=== PATIENT | male | born 1950 | race African-American/Black ===

== ENCOUNTER 2019-02-22 08:59 | Inpatient (IN) | payer MEDICARE ==
[2019-02-22] MEDS ORDERED: NORepinephrine 8MG/250 ML (PMX 250 ML (09:30)
[2019-02-22] MEDS ORDERED: MAGNESIUM HYDROXIDE 30ML CUP PO (10:30)
[2019-02-22] MEDS ORDERED: HYDROCODONE/APAP (5/325) TAB PO (10:30)
[2019-02-22] MEDS ORDERED: NITROGLYCERIN (SL) 0.4 MG TAB SL (10:30)
[2019-02-22] MEDS ORDERED: ALBUTEROL/IPRATROPIUM (NEB) 3 ML AMP HHN (10:30)
[2019-02-22] MEDS ORDERED: DOCUSATE SODIUM 100 MG CAP PO (10:30)
[2019-02-22] MEDS ORDERED: VANCOMYCIN IV PER PHARMACY XX (10:30)
[2019-02-22] MEDS ORDERED: PHENYLephrine 80 MG in DEXTROSE 5% 242 ML IV (10:30)
[2019-02-22] MEDS ORDERED: NORepinephrine 8MG/250 ML (PMX 250 ML IV (10:30)
[2019-02-22] MEDS ORDERED: morphine 2 MG INJ IV (10:30)
[2019-02-22] MEDS ORDERED: ACETAMINOPHEN 325 MG TAB PO (10:30)
[2019-02-22] MEDS ORDERED: NACL 0.9% 3 ML SYG IV (10:30)
[2019-02-22] MEDS: NORepinephrine 8MG/250 ML (PMX 250 ML IV (11:06)
[2019-02-22] MEDS ORDERED: GLUCOSE GEL 15 GRAM TUBE PO ×2 (11:30)
[2019-02-22] MEDS ORDERED: GLUCOSE GEL 15 GRAM TUBE BUCCAL (11:30)
[2019-02-22] MEDS ORDERED: GLUCAGON 1 MG INJ IM (11:30)
[2019-02-22] MEDS: DEXTROSE 50% 50 ML SYRINGE IV ×2 (12:11→17:42)
[2019-02-22] MEDS: CEFEPIME 2GM/50 ML (PMX) 50 ML IVPB (12:12)
[2019-02-22] MEDS: VANCOMYCIN 1.25 GM/NS 250 ML 250 ML IVPB (12:16)
[2019-02-22] MEDS: INSULIN ASPART [NOVOLOG] 3 ML PEN SC ×3 (12:18→20:22)
[2019-02-22] MEDS ORDERED: CEFEPIME 2GM/50 ML (PMX) 50 ML IVPB (14:00)
[2019-02-22] MEDS: LACTATED RINGER'S 1,000 ML IV (15:02)
[2019-02-22] MEDS: DEXTROSE 10% 1,000 ML IV (15:02)
[2019-02-22] MEDS: ATORVASTATIN 20 MG TAB GTB (20:19)
[2019-02-22] MEDS: NORepinephrine 32 MG in DEXTROSE 5% 218 ML IV (21:00)
[2019-02-22] MEDS: ONDANSETRON 4 MG INJ IV (21:07)
[2019-02-23] MEDS: PHENYLephrine 80 MG in DEXTROSE 5% 242 ML IV (00:15)
[2019-02-23] MEDS: SOD CHLORIDE 0.9% 500 ML IV (00:40)
[2019-02-23] MEDS: INSULIN ASPART [NOVOLOG] 3 ML PEN SC ×3 (01:00→09:00)
[2019-02-23] MEDS: LORAZEPAM 2 MG INJ IV (01:10)
[2019-02-23] MEDS: DEXTROSE 50% 50 ML SYRINGE IV (01:10)
[2019-02-23] MEDS: ALBUMIN HUMAN 25% 100 ML IV (01:11)
[2019-02-23] MEDS: ACCU-CHEK XX (01:17)
[2019-02-23] MEDS ORDERED: PROPOFOL 100 ML (01:55)
[2019-02-23] MEDS: PROPOFOL 100 ML IV (02:03)
[2019-02-23] MEDS: PANTOPRAZOLE 40 MG INJ IV (05:31)
[2019-02-23] MEDS ORDERED: NA BICARBONATE 8.4% 50 ML SYG (08:23)
[2019-02-23] MEDS: NA BICARBONATE 8.4% 50 ML SYG IV (08:27)
[2019-02-23] MEDS ORDERED: VASOPRESSIN 60 UNIT in DEXTROSE 5% 57 ML IV (08:30)
[2019-02-23] MEDS: MULTIVIT/CA CARB/B CMPLX/FA TAB GTB (09:00)
[2019-02-23] MEDS ORDERED: CEFEPIME 1GM/50 ML IVPB (12:00)
== END 2019-02-23 09:41 | disposition expired | DRG 871 ==
LOC: ICU 08:59
PROC: 5A1945Z Respiratory Ventilation, 24-96 Consecutive Hours (ICD-10-PCS; principal; 2019-02-22)
DX: A41.9 Sepsis, unspecified organism (principal); J69.0 Pneumonitis due to inhalation of food and vomit; N18.6 End stage renal disease; R53.2 Functional quadriplegia; R65.21 Severe sepsis with septic shock; G92 Toxic encephalopathy; J96.11 Chronic respiratory failure with hypoxia; I12.0 Hypertensive chronic kidney disease with stage 5 chronic kidney disease or end stage renal disease; Z99.11 Dependence on respirator [ventilator] status; K92.2 Gastrointestinal hemorrhage, unspecified; Z93.0 Tracheostomy status; I95.9 Hypotension, unspecified; E11.22 Type 2 diabetes mellitus with diabetic chronic kidney disease; Z93.1 Gastrostomy status; E87.5 Hyperkalemia; I25.10 Atherosclerotic heart disease of native coronary artery without angina pectoris; Z66 Do not resuscitate; Z99.2 Dependence on renal dialysis; Z79.4 Long term (current) use of insulin; I25.2 Old myocardial infarction
CPT/HCPCS: 36600; 71045; 80048; 80053; 80061; 82803; 82962; 83036; 83605; 83735; 84100; 84439; 84443; 85025; 85610; 85730; 87040-91; 87081; 94002; 94003